=== PATIENT | male | born 1970 | race Caucasian/White ===

== ENCOUNTER → 2019-03-20 | Outpatient (CLI) | payer BC ==
--- NOTE | 2019-03-20 07:51 | US ---
EXAMINATION TYPE: US scrotum with doppler. Grayscale and color Doppler Duplex imaging performed of t he scrotum. DATE OF EXAM: 03/20/2019 COMPARISON: NONE CLINICAL HISTORY: R86.9 Abn semen. Blood in semen. EXAM MEASUREMENTS: TESTICLES: Right Testicle: 3.9 x 2.2 x 3.0 cm Left Testicle: 3.9 x 2.1 x 3.4 cm EPIDIDYMIS HEAD: Right Epididymis: .9 x .5 x .7 cm Left Epididymis: 1.0 x .5 x .8 cm Doppler performed to assess for testicular vascularity; good bilateral color flow and waveforms are s een. There is no evidence of testicular torsion. Presence of hydroceles: No Presence of varicoceles: No IMPRESSION: Unremarkable scrotal ultrasound. No sonographic evidence of testicular torsion nor epidid ymoorchitis.
--- NOTE | 2019-03-20 10:16 | US ---
EXAMINATION TYPE: US prostate transrectal DATE OF EXAM: 03/20/2019 COMPARISON: NONE CLINICAL HISTORY: R86.9 Abn semen. Blood in semen. This examination was performed using the transrectal probe. EXAM MEASUREMENTS: Gland Size: 4.0 x 2.6 x 3.8 cm Volume: 20.6 Predicted PSA: 2.4 Actual PSA (if available):Not available Heterogenous prostate gland with central zone calcifications. No focal nodule is seen in the peripher al zone on the submitted images. Seminal vesicles appear unremarkable. IMPRESSION: Heterogenous prostate gland as there are central zone calcifications. No focal suspiciou s nodule is seen. Predicted PSA = volume x 0.12 ng/ml Calculated Volume = 0.5236 x L x W x H
== END | disposition home or self-care (01) ==
LOC: RADUSWWP 06:52
PROVIDERS: ATTEND Family Medicine
DX: N42.89 Other specified disorders of prostate (principal); R86.9 Unspecified abnormal finding in specimens from male genital organs
CPT/HCPCS: 76870; 76872; 93975

== ENCOUNTER 2019-04-20 11:38 | Day surgery (SDC) | payer BC ==
[2019-04-16 09:41] VITALS: BMI 26.4
[~2019-04-20 11:38] MED LIST: LACTATED RINGERS 1,000 ML IV SCH; LIDOCAINE 1% 20 ML VIAL (10MG/ML) FOR IV START INTRADERMA PRN
[2019-04-20] MEDS ORDERED: LACTATED RINGERS 1,000 ML IV ONE (12:02)
[2019-04-20 12:16] VITALS: TEMP 97.7
[2019-04-20] MEDS ORDERED: PROPOFOL 10 MG/ML 20 ML VIAL IV ONE (13:02)
--- NOTE | 2019-04-20 13:40 | P.PCN ---
Date of Procedure: 04/20/19 Description of Procedure: BRIEF HISTORY: 48-year-old male with family history of colon cancer/colonic mass who presents for outpatient colonoscopy. No change in bowel habits, blood per rectum or abdominal pain. PROCEDURE PERFORMED: Colonoscopy with polypectomy. PREOPERATIVE DIAGNOSIS: Family history of colon cancer, no prior colonoscopies. ESTIMATED BLOOD LOSS: Minimal. IV sedation per Anesthesia. PROCEDURE: After informed consent was obtained, the patient, was brought into the endoscopy unit. IV sedation was administered by Anesthesia under continuous monitoring. Digital rectal examination was normal. Initially the Olympus CF-190 flexible video colonoscope was then inserted in the rectum, gradually advanced into the cecum without any difficulty. Careful examination was performed as the scope was gradually being withdrawn. Ileocecal valve and the appendiceal orifice were visualized and appeared normal. Prep was excellent. Mucosa of the cecum, ascending colon, transverse colon, descending colon, sigmoid colon, and rectum appeared normal. Diminutive 2 mm cecal polyp removed with cold forceps. Retroflexion was performed in the rectum and no lesions were seen. The patient tolerated the procedure well. IMPRESSION: Diminutive cecal polyp removed with cold forceps. Normal-appearing colon from rectum to cecum. RECOMMENDATIONS: Findings of this examination were discussed with the patient. Okay to resume diet. Await pathology from polypectomy. Okay to resume medications. Anticipate repeat colonoscopy in 5 years for colon polyps and family history of colon cancer.
[2019-04-20 13:50] VITALS: BP 110/73; PULSE 58; RESP 16
== END 2019-04-20 14:03 | disposition home or self-care (01) ==
LOC: ORWHC2ENDO 11:38
PROVIDERS: ATTEND Internal Medicine
DX: Z12.11 Encounter for screening for malignant neoplasm of colon (principal); K63.5 Polyp of colon; Z80.0 Family history of malignant neoplasm of digestive organs
CPT/HCPCS: 88305; 45380; J2704

== ENCOUNTER → 2022-02-22 | Outpatient (CLI) | payer BC ==
--- NOTE | 2022-02-22 10:19 | CT ---
EXAMINATION TYPE: CT abdomen pelvis wo con DATE OF EXAM: 02/22/2022 COMPARISON: None HISTORY: Unspecified abdominal pain CT DLP: 688.2 mGycm Automated exposure control for dose reduction was used. TECHNIQUE: Helical acquisition of images was performed from the lung bases through the pelvis. FINDINGS: LUNG BASES: No significant abnormality is appreciated. LIVER/GB: There is a hypodense lesion involving the liver near the dome measuring 2 cm indeterminate by noncontrast technique. Recommend ultrasound. Does not meet the criteria of a simple cyst. No galls tones. PANCREAS: No significant abnormality is seen. SPLEEN: No significant abnormality is seen. ADRENALS: No significant abnormality is seen. KIDNEYS: No significant abnormality is seen. ADENOPATHY: None visualized. OSSEOUS STRUCTURES: Curvature of the spine with hypertrophic and degenerative change of the spine. A disc bulge and lower lumbar spine with facet arthropathy suspected multilevel canal stenosis. Multil evel foraminal protrusions BOWEL: No significant abnormality is seen. OTHER: Calcifications in the pelvis appear vascular. Atherosclerotic change of the iliac vasculature. Aorta normal caliber. IMPRESSION: 1. Indeterminate 2 cm lesion dome of the liver does not meet the criteria of a simple cyst. Recommend either MRI or ultrasound for further evaluation.
== END | disposition home or self-care (01) ==
LOC: RADCTMAIN 08:27
PROVIDERS: ATTEND Family Medicine
DX: R10.9 Unspecified abdominal pain (principal)
CPT/HCPCS: 74176

== ENCOUNTER → 2022-03-09 | Outpatient (CLI) | payer BC ==
--- NOTE | 2022-03-09 11:20 | US ---
EXAMINATION TYPE: US liver DATE OF EXAM: 03/09/2022 COMPARISON: 02/22/22 CT CLINICAL HISTORY: K76.9 Liver disease, unspecified. abn CT, lesion seen on liver, general upper abd p ain x 3 yrs, intermittent TECHNIQUE: Multiple sonographic images of the right upper quadrant are obtained. FINDINGS: EXAM MEASUREMENTS: Liver Length: 18.1 cm Gallbladder Wall: 0.2 cm CBD: 0.4 cm Right Kidney: 11.3 x 4.5 x 4.7 cm INTERPRETER DEAF NOTES:some exam limitations due to overlying bowel gas Pancreas: very limited visualization due to overlying bowel gas Liver: seen with an irregular 2.2 1.9 x 2.3cm isoechogenic mass with through transmission at the ant erior dome lateral to the GB Gallbladder: wnl Evidence for sonographic New's sign: no CBD: wnl Right Kidney: wnl IMPRESSION: Nonspecific hepatic mass requires further evaluation with contrast-enhanced CT.
== END | disposition home or self-care (01) ==
LOC: RADUSWWP 10:33
PROVIDERS: ATTEND Family Medicine
DX: K76.9 Liver disease, unspecified (principal)
CPT/HCPCS: 76705

== ENCOUNTER → 2022-04-09 | Outpatient (CLI) | payer BC ==
--- NOTE | 2022-04-11 08:55 | MR ---
EXAMINATION TYPE: MR abdomen wo/w con DATE OF EXAM: 04/09/2022 COMPARISON: Ultrasound 03/09/[address] 02/22/2022 HISTORY: 51-year-old male K76.9, unspecified liver disease, Abdominal pain. Technique: Multiplanar, multisequence images of the abdomen were obtained before and after administra tion of 10 mL intravenous Gadavist gadolinium contrast. FINDINGS: Heart normal size without pericardial effusion. No pleural effusion. Liver mildly enlarged at 19.1 cm. Opposed phase T1-weighted sequences show slight loss of signal on o ut of phase sequence suggesting mild fatty infiltration. Within segment 8 anterior superior right hepatic lobe, there is a 2.5 x 2.0 x 2.1 cm T2 bright and T1 hypointense mass. This is bright on DWI. On postcontrast sequences, this shows peripheral nodular pu ddling and progressive fill-in. No additional focal liver lesion seen. Portal venous system is patent. No biliary ductal dilatation. Gallbladder, adrenal glands, left kidney, spleen, and pancreas within normal limits. There is a 9 mm cortical cyst lateral mid right kidney. Symmetric uptake and excretion of contrast fr om both kidneys. No abdominal ascites, upper abdominal lymphadenopathy, or gross bowel abnormality is seen. Scattered moderate stool burden. IMPRESSION: 1. Mild hepatomegaly (19.1 cm) with mild hepatic steatosis. 2. A 2.5 cm segment 8 right liver lobe mass with characteristics compatible with a benign hemangioma, correlating to findings on both recent CT and ultrasound.
== END | disposition home or self-care (01) ==
LOC: RADMRIMAIN 14:38
PROVIDERS: ATTEND Family Medicine
DX: K76.0 Fatty (change of) liver, not elsewhere classified (principal); K76.89 Other specified diseases of liver; R16.0 Hepatomegaly, not elsewhere classified
CPT/HCPCS: 74183; A9585

== ENCOUNTER → 2022-11-21 | Outpatient (CLI) | payer BC ==
--- NOTE | 2022-11-21 11:13 | CA ---
Stress Echo Report Epifanio Boyer Age: 52 Gender: M : 1970 Exam Date: 11/21/2022 09:46 Exam Location: [place] Stress Ht (in): 72 Wt (lb): 220 Ordering Physician: Te Godfrey MD Referring Physician: Bekah KC Machine Gun Mechanic: Too Barry Technologist Procedure CPT: Indication: R00.2 ICD-9 Codes: Rhythm: Patient History: Cardiac Medications: none Medications in past 24 hours: Contrast: N/A Stress Results Protocol: Mahamed Total dose(mL): Exercise Duration (min:sec): 5:[address] Depression (mm): Angina Score: Fairchild Score: METS: 12.7 Resting HR: 77 Resting BP: 117 / 67 Peak HR: 170 Peak BP: 183 / 76 Max Predicted HR: 167 102 % Max Predicted HR Target HR: 142 Double Product: 53302 Stress Summary: BP Response: Reason for Termination: Reached target heart rate or work-load Cardiac Symptoms: NO SYMPTOMS ECG Analysis Resting ECG: Normal sinus rhythm normal axis normal intervals Stress ECG: Patient exercised on Mahamed protocol for 5 minutes achieving 85% of predicted maximal heart rate without chest pain or diagnostic ST segment depression Arrhythmia: Echo Analysis Resting Echo: Baseline echo shows normal left ventricular size wall motion systolic function Peak Echo Analysis: Post exercise there is normal hyperdynamic response of all segments of myocardium noted MEASUREMENTS (Male/Female) Normal Values CONCLUSIONS Limited exercise tolerance Negative stress test by EKG criteria Negative stress echo Dr. Tam Reyna MD (Electronically Signed) Final Date: 21 November 2022 11:12
== END | disposition home or self-care (01) ==
LOC: RADNMMAIN 09:07
PROVIDERS: ATTEND Family Medicine
DX: R00.2 Palpitations (principal)
CPT/HCPCS: 93351